=== PATIENT | female | born 1975 ===

== ENCOUNTER 2024-11-30 16:46 | Emergency (ER) | payer MEDICAID ==
[~2024-11-30] VITALS: Ht 170.1 cm; Wt 90.7 kg
[2024-11-30] MEDS ORDERED: Polymyxin B Sulfate/Trimetho 10 ML BOT OPH ONE (17:55)
[2024-11-30] MEDS ORDERED: Acetaminophen/Hydrocodone 5 MG/325 MG TABLET PO ONE (17:55)
== END 2024-11-30 18:16 | disposition home or self-care (01) ==
LOC: ED 16:46
DX: T26.41XA Burn of right eye and adnexa, part unspecified, initial encounter (principal); T54.3X1A Toxic effect of corrosive alkalis and alkali-like substances, accidental (unintentional), initial encounter; Y92.89 Other specified places as the place of occurrence of the external cause